=== PATIENT | female | born 1985 | race American Indian/Alaskan Native ===

== ENCOUNTER 2019-09-18 07:47 | Emergency (ER) | payer OTHER ==
[2019-09-18 08:02] VITALS: BP 147/105
--- NOTE | 2019-09-18 11:31 | Emergency Department Report ---
HPI - General Chief Complaint: Extremity Injury, Upper Time Seen by Provider: 09/18/19 11:17 - HPI HPI: Room 43 The patient is 34-year-old female presenting with a chief complaint of right axilla pain. Patient states she's noticed pain and swelling to the right axilla 2-3 days ago. Patient denies any recent injury to the arm. Patient denies drainage. The patient states she shaved her axilla approximately one week ago. Location: [See above] Duration: [See above] Quality: [See above] Severity: [See above] Timing: [See above] Context: [See above] Modifying factors: [See above] Associated signs and symptoms: [see above] ED Past Medical Hx - Past Medical History Previous Medical History?: No - Surgical History Past Surgical History?: No - Family History Family history: no significant - Social History Smoking Status: Current Every Day Smoker (1/2 pack per day) Substance Use Type: None (denies illicit drug use) - Medications Home Medications: Home Medications Medication Instructions Recorded Confirmed Last Taken Type HYDROcodone/APAP 5-325 [[place] 1 - 2 each PO Q6HR PRN #14 tablet 09/18/19 Unknown Rx 5/325] Ibuprofen [Motrin 800 MG tab] 800 mg PO Q8HR PRN #20 tablet 09/18/19 Unknown Rx Sulfamethoxazole/Trimethoprim 1 each PO BID #14 tablet 09/18/19 Unknown Rx [Bactrim DS TAB] ED Review of Systems ROS: Stated complaint: (R) ARM PAIN Other details as noted in HPI Constitutional: denies: fever Skin: other (right axilla swelling) Physical Exam - Physical Exam Vital Signs: Vital Signs 09/18/19 08:00 Temperature 99 F Pulse Rate 110 H Respiratory 20 Rate Blood Pressure 147/105 O2 Sat by Pulse 100 Oximetry Physical Exam: GENERAL: The patient is well-developed well-nourished female lying on stretcher not appearing to be in acute distress. [] HEENT: Normocephalic. Atraumatic. Extraocular motions are intact. Patient has moist mucous membranes. NECK: Supple. Trachea midline CHEST/LUNGS: There is no respiratory distress noted. HEART/CARDIOVASCULAR: Regular. There is no tachycardia. There is no gallop rub or murmur. SKIN: There is an ovoid region of tenderness and fluctuance in the right axilla consistent with abscess. No drainage visualized NEURO: The patient is awake, alert, and oriented. The patient is cooperative. The patient has normal speech MUSCULOSKELETAL: There is no evidence of acute injury. ED Course Vital Signs 09/18/19 08:00 Temperature 99 F Pulse Rate 110 H Respiratory 20 Rate Blood Pressure 147/105 O2 Sat by Pulse 100 Oximetry - I & D Right Proximal Arm Type of Procedure: Simple Site: right axilla Blade Size: 11 I & D Procedure: betadine prep, sterile drapes applied, gauze wick placed Progress: Approximately 3 mL's purulent drainage released during I&D. Wound irrigated with normal saline 500 ml. Patient tolerated well ED Medical Decision Making - Differential Diagnosis folliculitis, abscess Critical care attestation.: If time is entered above; I have spent that time in minutes in the direct care of this critically ill patient, excluding procedure time. ED Disposition Clinical Impression: Abscess of right axilla Disposition: TO HOME OR SELFCARE Is pt being admited?: No Does the pt Need Aspirin: No Condition: Stable Instructions: Abscess Incision and Drainage (ED), Abscess (ED) Additional Instructions: Return to the emergency department in 48 hours to have the wound reevaluated. Return to the emergency department should you develop worsening symptoms, inability to tolerate food or liquids, high fever or any other concerns Prescriptions: Sulfamethoxazole/Trimethoprim [Bactrim DS TAB] 1 each PO BID #14 tablet Ibuprofen [Motrin 800 MG tab] 800 mg PO Q8HR PRN #20 tablet PRN Reason: Pain, Moderate (4-6) HYDROcodone/APAP 5-325 [[place] 5/325] 1 - 2 each PO Q6HR PRN #14 tablet PRN Reason: Pain Referrals: PRIMARY CAREMD [Primary Care Provider] - 3-5 Days MARCY CASTILLO MD [Staff Physician] - 3-5 Days Time of Disposition: 12:31
[2019-09-18] MEDS ORDERED: LIDOCAINE 1%/EPINEPHRINE 1:100,000 VIAL (20 ML) INFILTRATI ONE (11:39)
[2019-09-18] MEDS ORDERED: SODIUM CHLORIDE 0.9% IRR 500 ML BOTTLE IR ONE (11:39)
== END 2019-09-18 12:54 | disposition home or self-care (01) ==
LOC: ED 07:47
DX: L02.411 Cutaneous abscess of right axilla (principal); F17.200 Nicotine dependence, unspecified, uncomplicated
CPT/HCPCS: 99282